=== PATIENT | female | born 1975 | race Caucasian/White ===

== ENCOUNTER 2021-05-20 21:48 | Observation (INO) ==
[2021-05-21] MEDS ORDERED: 0.9 % Sodium Chloride 1,000 ML IV ONE (00:34)
[2021-05-21] MEDS ORDERED: Ondansetron 4 MG/2 ML VIAL IVP ONE (00:34)
[2021-05-21] MEDS ORDERED: Metoclopramide 10 MG/2 ML VIAL IVP ONE (00:48)
[2021-05-21] MEDS ORDERED: Isovue-370 500 ML BOTTLE IVP ONE (00:49)
[2021-05-21 01:12] LABS: Basophils # 0.1 K/mcL (0.0-0.2); Basophils % 0.5 %; Eosinophils # 0.1 K/mcL (0.0-0.6); Hematocrit 43.6 % (35.3-44.9); Hemoglobin 14.9 g/dL (11.5-15.4); Immature Granulocytes % 0.3 % (0-4); Lymphocytes # 1.9 K/mcL (0.6-4.6); Lymphocytes % 19.1 %; Mean Corpuscular HGB Conc 34.2 g/dL (31.6-35.5); Mean Corpuscular Hemoglobin 33.3 pg (28.0-33.3); Mean Corpuscular Volume 97.5 fL (83.0-100.0); Mean Platelet Volume 10.4 fL (9.4-12.4); Monocytes # 0.7 K/mcL (0.0-1.3); Monocytes % 6.4 %; Neutrophils # 7.4 K/mcL (1.6-8.9); Platelet Count 347 K/mcL (140-400); Red Blood Count 4.47 M/mcL (3.82-4.97); Red Cell Distribution Width 13.7 % (11.5-14.5); Segmented Neutrophils % 72.7 %; White Blood Count 10.1 K/mcL (4.3-11.1)
[2021-05-21 01:31] LABS: Alanine Aminotransferase 34 Units/L (7-52); Albumin 4.5 g/dL (3.5-5.7); Albumin/Globulin Ratio 1.1 (1.1-2.2); Alkaline Phosphatase 49 Units/L (34-104); Amylase 50 Units/L (29-103); Aspartate Amino Transferase 50 Units/L (13-39); BUN/Creatinine Ratio 7 (6-26); Blood Urea Nitrogen 7 mg/dL (6-20); Calcium 10.5 mg/dL (8.6-10.3); Carbon Dioxide 32 mEq/L (23-29); Chloride 84 mEq/L (98-107); Glucose 110 mg/dL (70-105); Lipase 37 Units/L (11-82); Osmolality,Calculated 273 (280-300); Potassium 2.7 mEq/L (3.5-5.1); Sodium 132 mEq/L (136-145); Total Protein 8.5 g/dL (6.4-8.9); eGFR For African Americans > 60 (> 60); eGFR For Non-African Americans > 60 (> 60)
[2021-05-21 01:54] LABS: Magnesium 1.7 mg/dL (1.6-2.6)
[2021-05-21 02:08] LABS: Bacteria,Urine Few per hpf (None-Few); Bilirubin,Urine Negative (Negative); Blood,Urine Negative (Negative); Clarity,Urine Turbid (Clear); Color,Urine Yellow (Yellow); Glucose,Urine (UA) Normal (Normal); Hyaline Casts,Urine Few per lpf (None Seen); Ketones,Urine Negative (Negative); Leukocyte Esterase,Urine Trace (Negative); Mucus,Urine Few per lpf (None-Few); Nitrite,Urine Negative (Negative); Protein,Urine 30 mg/dL (Neg-Trace); Specific Gravity,Urine 1.017 (1.010-1.025); Squamous Epithelial Cell,Urine Moderate per hpf (None-Few); WBC,Urine 15-30 per hpf (0-3)
[2021-05-21] MEDS ORDERED: *HR* Promethazine 25 MG/ML VIAL IM ONE (02:58)
[2021-05-21] MEDS ORDERED: Naloxone 0.4 MG/ML INJ IVP PRN (03:26)
[2021-05-21] MEDS ORDERED: *HR* Promethazine 25 MG/ML VIAL IM PRN (03:26)
[2021-05-21] MEDS ORDERED: Ondansetron 4 MG/2 ML VIAL IVP PRN (03:26)
[2021-05-21 05:11] LABS: Adenovirus Not Detected (Not Detect); Bordetella Pertussis Not Detected (Not Detect); Chlamydophila pneumoniae Not Detected (Not Detect); Coronavirus 229E Not Detected (Not Detect); Coronavirus HKU1 Not Detected (Not Detect); Coronavirus NL63 Not Detected (Not Detect); Coronavirus OC43 Not Detected (Not Detect); Human Metapneumovirus Not Detected (Not Detect); Human Rhinovirus/Enterovirus Not Detected (Not Detect); Influenza A Subtype 2009 H1 Not Detected (Not Detect); Influenza B Not Detected (Not Detect); Mycoplasma pneumoniae Not Detected (Not Detect); Parainfluenza Virus 1 Not Detected (Not Detect); Parainfluenza Virus 2 Not Detected (Not Detect); Parainfluenza Virus 3 Not Detected (Not Detect); Parainfluenza Virus 4 Not Detected (Not Detect); Respiratory Syncytial Virus Not Detected (Not Detect); SARS-CoV-2 Not Detected (Not Detect)
[2021-05-21] MEDS: 0.9 % Sodium Chloride 1,000 ML IVC SCH ×3 (06:50→19:50)
[2021-05-21] MEDS: Pantoprazole 40 MG VIAL IVP SCH (07:49)
[2021-05-21 12:24] LABS: Basophils % 0.5 %; Eosinophils # 0.2 K/mcL (0.0-0.6); Eosinophils % 2.1 %; Hematocrit 37.3 % (35.3-44.9); Immature Granulocytes % 0.2 % (0-4); Lymphocytes # 1.8 K/mcL (0.6-4.6); Lymphocytes % 21.5 %; Mean Corpuscular HGB Conc 33.2 g/dL (31.6-35.5); Mean Corpuscular Hemoglobin 33.2 pg (28.0-33.3); Mean Corpuscular Volume 99.7 fL (83.0-100.0); Mean Platelet Volume 10.4 fL (9.4-12.4); Monocytes # 0.7 K/mcL (0.0-1.3); Monocytes % 8.1 %; Neutrophils # 5.5 K/mcL (1.6-8.9); Platelet Count 297 K/mcL (140-400); Red Blood Count 3.74 M/mcL (3.82-4.97); Red Cell Distribution Width 13.7 % (11.5-14.5); Segmented Neutrophils % 67.6 %; White Blood Count 8.2 K/mcL (4.3-11.1)
[2021-05-21 12:36] LABS: Hemoglobin 12.4 g/dL (11.5-15.4)
[2021-05-21 12:54] LABS: BUN/Creatinine Ratio 8 (6-26); Blood Urea Nitrogen 6 mg/dL (6-20); Carbon Dioxide 33 mEq/L (23-29); Chloride 92 mEq/L (98-107); Potassium 2.4 mEq/L (3.5-5.1); Sodium 137 mEq/L (136-145)
[2021-05-21 12:55] LABS: Alanine Aminotransferase 27 Units/L (7-52); Albumin 3.7 g/dL (3.5-5.7); Albumin/Globulin Ratio 1.2 (1.1-2.2); Alkaline Phosphatase 39 Units/L (34-104); Aspartate Amino Transferase 37 Units/L (13-39); Bilirubin,Total 0.9 mg/dL (0.3-1.0); Calcium 9.3 mg/dL (8.6-10.3); Globulin 3.1 g/dL (2.4-3.5); Glucose 96 mg/dL (70-105); Osmolality,Calculated 281 (280-300); Total Protein 6.8 g/dL (6.4-8.9); eGFR For African Americans > 60 (> 60); eGFR For Non-African Americans > 60 (> 60)
[2021-05-21] MEDS ORDERED: polyethylene glycoL 3350 17 GM POWD.PACK PO PRN (13:01)
[2021-05-21 14:17] LABS: Bilirubin,Urine Negative (Negative); Blood,Urine Negative (Negative); Clarity,Urine Clear (Clear); Color,Urine Light-Yellow (Yellow); Glucose,Urine (UA) Normal (Normal); Ketones,Urine Trace mg/dL (Negative); Leukocyte Esterase,Urine Negative (Negative); Nitrite,Urine Negative (Negative); PH,Urine 6.5 pH Units (5.0-8.0); Protein,Urine Negative (Neg-Trace); Specific Gravity,Urine 1.014 (1.010-1.025); Urobilinogen,Urine Normal (Normal)
[2021-05-21] MEDS: Acetaminophen 325 MG TABLET PO PRN (17:01)
[2021-05-22 06:43] LABS: BUN/Creatinine Ratio 7 (6-26); Blood Urea Nitrogen 5 mg/dL (6-20); Calcium 8.7 mg/dL (8.6-10.3); Carbon Dioxide 29 mEq/L (23-29); Chloride 101 mEq/L (98-107); Glucose 104 mg/dL (70-105); Magnesium 1.7 mg/dL (1.6-2.6); Osmolality,Calculated 288 (280-300); Potassium 2.9 mEq/L (3.5-5.1); Sodium 140 mEq/L (136-145); eGFR For African Americans > 60 (> 60); eGFR For Non-African Americans > 60 (> 60)
[2021-05-22] MEDS: Pantoprazole 40 MG VIAL IVP SCH (07:50)
[2021-05-22] MEDS: Acetaminophen 325 MG TABLET PO PRN (09:51)
[2021-05-22] MEDS ORDERED: 0.9 % Sodium Chloride 1,000 ML ONE (10:10)
[2021-05-22 11:28] VITALS: BP 105/68; PULSE 97; TEMP 98.2; O2SAT 96
== END 2021-05-22 19:27 | disposition left against medical advice (07) ==
LOC: 3ANU 21:48 → EMEROOARM 21:48 → SUATTDRO 05-21 03:53 → 3ANU 05-21 05:13
PROVIDERS: ADMIT Internal Medicine; ATTEND Internal Medicine